=== PATIENT | male | born 1980 | race Caucasian/White ===

== ENCOUNTER 2017-11-10 11:14 | Inpatient (IN) | payer OTHER ==
[~2017-11-10] VITALS: Ht 172.7 cm; Wt 76.0 kg
[2017-11-10 11:15] VITALS: BP 169/106; PULSE 91; RESP 16; TEMP 97.7; O2SAT 100
--- NOTE | 2017-11-10 11:33 | PD ---
HPI Chief Complaint: GI Complaint Time Seen by Provider: 11:31 Travel History International Travel<30 days: No Contact w/Intl Traveler<30days: No Traveled to known affect area: No History of Present Illness HPI 37-year-old male presents the emergency department with 3 day history of worsening perirectal pain, and swelling, with pain with defecation. Patient states he has had chills and felt feverish, but no nausea or vomiting or diarrhea. Patient has pain radiating into the left testicle and hip. Patient thought it was a hemorrhoid but symptoms progressed and feeling feverish developed over the last 24 hours. Patient was evaluated at local urgent care and felt to have a perirectal abscess and was sent here for further evaluation and treatment. Patient has no previous history of this in the past. Patient states he is allergic to hydrocodone. [facility] Social History Alcohol Use: Yes Tobacco Use: No Substance Use: No Allergies-Medications (Allergen,Severity, Reaction): Coded Allergies: hydrocodone (Verified Allergy, Intermediate, Nausea/Vomiting, 11/10/17) Reported Meds & Prescriptions Reported Meds & Active Scripts Active Reported Lisinopril 5 Mg Tab 5 Mg PO DAILY Review of Systems Except as stated in HPI: all other systems reviewed are Neg General / Constitutional: Positive: Fever, Chills (subjective) Eyes: No: Visual changes HENT: No: Headaches Cardiovascular: No: Chest Pain or Discomfort Respiratory: No: Shortness of Breath Gastrointestinal: Positive: Loss of Appetite, Other (perirectal pain and swelling), No: Nausea, Vomiting, Diarrhea, Abdominal Pain Genitourinary: Positive: Other (pain into the left perineum and scrotum.), No: Urgency, Frequency, Dysuria Musculoskeletal: No: Pain Skin: No Rash Neurologic: No: Weakness Psychiatric: No: Depression Endocrine: No: Polydipsia Hematologic/Lymphatic: No: Easy Bruising Physical Exam Narrative GENERAL: Patient appears ill but not septic. SKIN: Warm and dry. Normal color. Normal turgor. Patient has indurated swollen erythematous region to the left aspect of the rectum without signs of hemorrhoid. There is no fissure. There is no signs of pointing. This seems consistent with perirectal abscess. Erythema measures approximately 3 cm x 3 cm in a crescent shape. HEAD: Atraumatic. Normocephalic. EYES: Pupils equal and round. No scleral icterus. No injection or drainage. ENT: No nasal bleeding or discharge. Mucous membranes pink and moist. Pharynx is clear. Airway is patent. NECK: Trachea midline. Supple and nontender. CARDIOVASCULAR: Regular rate and rhythm. RESPIRATORY: No accessory muscle use. Clear to auscultation. Breath sounds equal bilaterally. GASTROINTESTINAL: Abdomen soft, non-tender, nondistended. Hepatic and splenic margins not palpable. Patient is tenderness along the perineum without obvious signs of extension into the scrotum. MUSCULOSKELETAL: Extremities without clubbing, cyanosis, or edema. No obvious deformities. NEUROLOGICAL: Awake and alert. No obvious cranial nerve deficits. Motor grossly within normal limits. Five out of 5 muscle strength in the arms and legs. Normal speech. PSYCHIATRIC: Appropriate mood and affect; insight and judgment normal. Data Data Last Documented VS Vital Signs Date Time Temp Pulse Resp B/P (MAP) Pulse Ox O2 Delivery O2 Flow Rate FiO2 11/10/17 12:06 (127) 11/10/17 11:15 97.7 91 16 100 Orders Orders Complete Blood Count With Diff (11/10/17 11:42) Comprehensive Metabolic Panel (11/10/17 11:42) Lactic Acid (11/10/17 11:42) Prothrombin Time / Inr (Pt) (11/10/17 11:42) Act Partial Throm Time (Ptt) (11/10/17 11:42) Urinalysis - C+S If Indicated (11/10/17 11:42) Ct Abd/Pel W Iv Contrast(Rout) (11/10/17 11:42) Iv Access Insert/Monitor (11/10/17 11:42) Ecg Monitoring (11/10/17 11:42) Oximetry (11/10/17 11:42) NPO (11/10/17 11:42) Morphine Inj (Morphine Inj) (11/10/17 11:45) Ondansetron Inj (Zofran Inj) (11/10/17 11:45) Metronidazole 500 Mg Inj (Flagyl 500 Mg (11/10/17 11:45) Sodium Chlor 0.9% 1000 Ml Inj (Ns 1000 M (11/10/17 11:42) Levofloxacin 500 Mg Premix Inj (Levaquin (11/10/17 11:45) Sodium Chloride 0.9% Flush (Ns Flush) (11/10/17 11:45) Electrocardiogram (11/10/17 11:42) Iohexol 350 Inj (Omnipaque 350 Inj) (11/10/17 13:31) Hydromorphone Pf Inj (Dilaudid Pf Inj) (11/10/17 14:30) Admit Order (Ed Use Only) (11/10/17 14:45) Consult General Surgery (11/10/17 ) Labs Laboratory Tests Test 11/10/17 12:00 11/10/17 12:05 White Blood Count 9.2 TH/MM3 Red Blood Count 4.90 MIL/MM3 Hemoglobin 15.6 GM/DL Hematocrit 45.7 % Mean Corpuscular Volume 93.3 FL Mean Corpuscular Hemoglobin 31.9 PG Mean Corpuscular Hemoglobin Concent 34.1 % Red Cell Distribution Width 12.9 % Platelet Count 262 TH/MM3 Mean Platelet Volume 8.0 FL Neutrophils (%) (Auto) 73.7 % Lymphocytes (%) (Auto) 8.4 % Monocytes (%) (Auto) 16.9 % Eosinophils (%) (Auto) 0.7 % Basophils (%) (Auto) 0.3 % Neutrophils # (Auto) 6.8 TH/MM3 Lymphocytes # (Auto) 0.8 TH/MM3 Monocytes # (Auto) 1.6 TH/MM3 Eosinophils # (Auto) 0.1 TH/MM3 Basophils # (Auto) 0.0 TH/MM3 CBC Comment DIFF FINAL Differential Comment Prothrombin Time 10.2 SEC Prothromb Time International Ratio 1.0 RATIO Activated Partial Thromboplast Time 27.5 SEC Blood Urea Nitrogen 8 MG/DL Creatinine 0.88 MG/DL Random Glucose 99 MG/DL Total Protein 8.2 GM/DL Albumin 3.8 GM/DL Calcium Level 9.5 MG/DL Alkaline Phosphatase 109 U/L Aspartate Amino Transf (AST/SGOT) 21 U/L Alanine Aminotransferase (ALT/SGPT) 37 U/L Total Bilirubin 0.4 MG/DL Sodium Level 135 MEQ/L Potassium Level 4.2 MEQ/L Chloride Level 103 MEQ/L Carbon Dioxide Level 27.6 MEQ/L Anion Gap 4 MEQ/L Estimat Glomerular Filtration Rate 97 ML/MIN Lactic Acid Level 1.2 mmol/L MDM Medical Decision Making Medical Screen Exam Complete: Yes Emergency Medical Condition: Yes Differential Diagnosis Cellulitis. Abscess. Perirectal abscess. Narrative Course Patient appears medically stable at time of exam. Labs ordered including CBC, CMP, urinalysis. Lactic acid. Patient is made nothing by mouth an IV access is obtained. Patient is given Zofran 4 mg IV as well as 4 mg morphine IV. Patient is given 500 mg Levaquin IV as well as metronidazole 500 mg IV. EKG and chest x-ray is ordered. CT of the abdomen with IV contrast was ordered to rule out perirectal abscess. Labs showed no significant CBC, CMP is unremarkable. Lactic acid is 1.1. CT however shows: A mature fluid collection is identified posterior to the anus. It measures 2.5 x 2.6 x 3.4 cm in size. The stomach, small bowel, and colon demonstrate no acute abnormality. There is no free intraperitoneal air or fluid. Call was placed to Dr. Werner, the general surgeon on-call as we have no colorectal service, as discussed. Patient discussed with Dr. Werner who states he would recommend the patient be transferred for there is colorectal surgery on-call. Patient was discussed, and recommended to Dr. Monroy for surgical consult. Dr. Monroy said that he could take the patient into the surgery tomorrow morning. Call was placed to the residents, for admission and surgery tomorrow morning with Dr. Monroy. Diagnosis Primary Impression: Abscess, perirectal Admitting Information Admitting Physician Requests: Observation Condition: Stable Julian Edmonds Nov 10, 2017 11:32
[2017-11-10] MEDS ORDERED: LISI-519 PO (11:36)
[2017-11-10] MEDS ORDERED: SODIUM CHLOR 0.9% 1000 ML INJ 1,000 ML IV SCH (11:42)
[2017-11-10] MEDS ORDERED: SODIUM CHLORIDE 0.9% FLUSH 10 ML FLUSH IV FLUSH PRN ×2 (11:45→17:00)
[2017-11-10] MEDS ORDERED: ONDANSETRON HCL 4 MG/2 ML VIAL IVP ONE (11:45)
[2017-11-10] MEDS ORDERED: MORPHINE SULFATE 4 MG/ML INJ IV PUSH ONE (11:45)
[2017-11-10] MEDS ORDERED: LEVOFLOXACIN 500 MG PREMIX INJ 100 ML IV ONE (11:45)
[2017-11-10] MEDS ORDERED: metroNIDAZOLE 500 MG INJ 100 ML IV ONE (11:45)
[2017-11-10 12:38] LABS: AUTOMATED NEUTROPHIL # 6.8 TH/MM3 (1.8-7.7); BASOPHIL % 0.3 % (0.0-2.0); EOSINOPHIL # 0.1 TH/MM3 (0-0.4); EOSINOPHIL % 0.7 % (0.0-4.0); HEMATOCRIT 45.7 % (39.0-51.0); HEMO FLAGS DIFF FINAL; LYMPH % 8.4 % (9.0-44.0); LYMPHOCYTE # 0.8 TH/MM3 (1.0-4.8); MEAN CELL VOLUME 93.3 FL (80.0-100.0); MEAN CORPUSCULAR HEMOGLOBIN 31.9 PG (27.0-34.0); MEAN CORPUSCULAR HGB CONC 34.1 % (32.0-36.0); MONO % 16.9 % (0.0-8.0); NEUT % 73.7 % (16.0-70.0); PLATELET COUNT 262 TH/MM3 (150-450); RED CELL DISTRIBUTION WIDTH 12.9 % (11.6-17.2); WHITE BLOOD COUNT 9.2 TH/MM3 (4.0-11.0)
[2017-11-10 12:45] LABS: APTT (PATIENT) 27.5 SEC (24.3-30.1); PROTHROMBIN TIME - PATIENT 10.2 SEC (9.8-11.6)
[2017-11-10 13:04] LABS: ALT (GPT) 37 U/L (12-78); ANION GAP 4 MEQ/L (5-15); AST (GOT) 21 U/L (15-37); BICARBONATE 27.6 MEQ/L (21.0-32.0); BLOOD UREA NITROGEN 8 MG/DL (7-18); CHLORIDE 103 MEQ/L (98-107); GLOMERULAR FILTRATION RATE 97 ML/MIN (>89); POTASSIUM 4.2 MEQ/L (3.5-5.1); SODIUM (NA) 135 MEQ/L (136-145)
[2017-11-10 13:07] LABS: ALKALINE PHOSPHATASE 109 U/L (45-117); TOTAL BILIRUBIN ADULT 0.4 MG/DL (0.2-1.0)
[2017-11-10] MEDS ORDERED: IOHEXOL 350 MG/ML 10 ML VIAL (for RAD DIAG) IVCONTRAST ONE (13:31)
--- NOTE | 2017-11-10 13:38 | RADRPT ---
EXAM DATE/TIME: 11/10/2017 12:57 [place] COMPARISON: No previous studies available for comparison. INDICATIONS : Evaluate for perirectal abscess. IV CONTRAST: 96 cc Omnipaque 350 (iohexol) IV ORAL CONTRAST: No oral contrast ingested. RADIATION DOSE: 6.64 CTDIvol (mGy) MEDICAL HISTORY : Hypertension. SURGICAL HISTORY : None. ENCOUNTER: Initial ACUITY: 1 day PAIN SCALE: 5/10 LOCATION: abdomen TECHNIQUE: Volumetric scanning of the abdomen and pelvis was performed. Using automated exposure control and ad justment of the mA and/or kV according to patient size, radiation dose was kept as low as reasonably achievable to obtain optimal diagnostic quality images. DICOM format image data is available electro nically for review and comparison. FINDINGS: LOWER LUNGS: The visualized lower lungs are clear. LIVER: Liver is diffusely hypointense. There is no evidence of bile duct dilatation or space-occupying lesio ns. There are no calcified gallstones. SPLEEN: Normal size without lesion. PANCREAS: Within normal limits. KIDNEYS: Normal in size and shape. There is no mass, stone or hydronephrosis. ADRENAL GLANDS: Within normal limits. VASCULAR: There is no aortic aneurysm. BOWEL/MESENTERY: A mature fluid collection is identified posterior to the anus. It measures 2.5 x 2.6 x 3.4 cm in size . The stomach, small bowel, and colon demonstrate no acute abnormality. There is no free intraperito colin air or fluid. ABDOMINAL WALL: Within normal limits. RETROPERITONEUM: There is no lymphadenopathy. BLADDER: No wall thickening or mass. REPRODUCTIVE: Within normal limits. INGUINAL: There is no lymphadenopathy or hernia. MUSCULOSKELETAL: Within normal limits for patient age. CONCLUSION: 1. Perianal fluid collection characteristic of suspected abscess. 2. Hepatic steatosis. 3. No other significant abnormality. Yrn Jiménez MD on November 10, 2017 at 13:32 Board Certified Radiologist. This report was verified electronically.
[2017-11-10] MEDS ORDERED: HYDROmorphone HCL PF 2 MG/ML VIAL IV PUSH ONE (14:30)
--- NOTE | 2017-11-10 14:49 | HHI.HP ---
HPI Service Family Medicine Primary Care Physician No Primary Care Physician Admission Diagnosis Perirectal abscess Diagnoses: International Travel<30 Days: No Contact w/Intl Traveler<30days: No Known Affected Area: No History of Present Illness ED NOTE: 37-year-old male presents the emergency department with 3 day history of worsening perirectal pain, and swelling, with pain with defecation. Patient states he has had chills and felt feverish, but no nausea or vomiting or diarrhea. Patient has pain radiating into the left testicle and hip. Patient thought it was a hemorrhoid but symptoms progressed and feeling feverish developed over the last 24 hours. Patient was evaluated at local urgent care and felt to have a perirectal abscess and was sent here for further evaluation and treatment. Patient has no previous history of this in the past. Patient states he is allergic to hydrocodone. Past Family Social History Reported Medications Reported Meds & Active Scripts Active Reported Lisinopril 5 Mg Tab 5 Mg PO DAILY Allergies: Coded Allergies: hydrocodone (Verified Allergy, Intermediate, Nausea/Vomiting, 11/10/17) Physical Exam Vital Signs Vital Signs Date Time Temp Pulse Resp B/P (MAP) Pulse Ox O2 Delivery O2 Flow Rate FiO2 11/10/17 12:06 (127) 11/10/17 11:15 97.7 91 16 169/106 (127) 100 Physical Exam GENERAL: This is a well-nourished, well-developed patient, in no apparent distress. SKIN: No rashes, ecchymoses or lesions. Cool and dry. HEAD: Atraumatic. Normocephalic. No temporal or scalp tenderness. EYES: Pupils equal round and reactive. Extraocular motions intact. No scleral icterus. No injection or drainage. ENT: Nose without bleeding, purulent drainage or septal hematoma. Throat without erythema, tonsillar hypertrophy or exudate. Uvula midline. Airway patent. NECK: Trachea midline. No JVD or lymphadenopathy. Supple, nontender, no meningeal signs. CARDIOVASCULAR: Regular rate and rhythm without murmurs, gallops, or rubs. RESPIRATORY: Clear to auscultation. Breath sounds equal bilaterally. No wheezes , rales, or rhonchi. GASTROINTESTINAL: Abdomen soft, non-tender, nondistended. No hepato-splenomegaly , or palpable masses. No guarding. MUSCULOSKELETAL: Extremities without clubbing, cyanosis, or edema. No joint tenderness, effusion, or edema noted. No calf tenderness. Negative Homans sign bilaterally. NEUROLOGICAL: Awake and alert. Cranial nerves II through XII intact. Motor and sensory grossly within normal limits. Five out of 5 muscle strength in all muscle groups. Normal speech. Laboratory Laboratory Tests Test 11/10/17 12:00 11/10/17 12:05 White Blood Count 9.2 Red Blood Count 4.90 Hemoglobin 15.6 Hematocrit 45.7 Mean Corpuscular Volume 93.3 Mean Corpuscular Hemoglobin 31.9 Mean Corpuscular Hemoglobin Concent 34.1 Red Cell Distribution Width 12.9 Platelet Count 262 Mean Platelet Volume 8.0 Neutrophils (%) (Auto) 73.7 Lymphocytes (%) (Auto) 8.4 Monocytes (%) (Auto) 16.9 Eosinophils (%) (Auto) 0.7 Basophils (%) (Auto) 0.3 Neutrophils # (Auto) 6.8 Lymphocytes # (Auto) 0.8 Monocytes # (Auto) 1.6 Eosinophils # (Auto) 0.1 Basophils # (Auto) 0.0 CBC Comment DIFF FINAL Differential Comment Prothrombin Time 10.2 Prothromb Time International Ratio 1.0 Activated Partial Thromboplast Time 27.5 Blood Urea Nitrogen 8 Creatinine 0.88 Random Glucose 99 Total Protein 8.2 Albumin 3.8 Calcium Level 9.5 Alkaline Phosphatase 109 Aspartate Amino Transf (AST/SGOT) 21 Alanine Aminotransferase (ALT/SGPT) 37 Total Bilirubin 0.4 Sodium Level 135 Potassium Level 4.2 Chloride Level 103 Carbon Dioxide Level 27.6 Anion Gap 4 Estimat Glomerular Filtration Rate 97 Lactic Acid Level 1.2 Result Diagram: 11/10/17 1200 11/10/17 1200 Caprini VTE Risk Assessment Caprini Risk Assessment Model Point Value = 1 Point Value = 2 Point Value = 3 Point Value = 5 Age 41-60 Minor surgery BMI > 25 kg/m2 Swollen legs Varicose veins or History of unexplained or recurrent spontaneous Oral contraceptives or hormone replacement Sepsis (< 1 month) Serious lung disease, including pneumonia (< 1 month) Abnormal pulmonary function Acute myocardial infarction Congestive heart failure (< 1 month) History of inflammatory bowel disease Medical patient at bed rest Age 61-74 Arthroscopic surgery Major open surgery (> 45 min) Laparoscopic surgery (> 45 min) Malignancy Confined to bed (> 72 hours) Immobilizing plaster cast Central venous access Age >= 75 History of VTE Family history of VTE Factor V Leiden Prothrombin [id number] Lupus anticoagulant Anticardiolipin antibodies Elevated serum homocysteine Heparin-induced thrombocytopenia Other congenital or acquired thrombophilia Stroke (< 1 month) Elective arthroplasty Hip, pelvis, or leg fracture Acute spinal cord injury (< 1 month) Prophylaxis Regimen Total Risk Factor Score Risk Level Prophylaxis Regimen 0-1 Low Early ambulation 2 Moderate Order ONE of the following: *Sequential Compression Device (SCD) *Heparin 5000 units SQ BID 3-4 Higher Order ONE of the following medications: *Heparin 5000 units SQ TID *Enoxaparin/Lovenox 40 mg SQ daily (WT < 150 kg, CrCl > 30 mL/min) *Enoxaparin/Lovenox 30 mg SQ daily (WT < 150 kg, CrCl > 10-29 mL/min) *Enoxaparin/Lovenox 30 mg SQ BID (WT < 150 kg, CrCl > 30 mL/min) AND/OR *Sequential Compression Device (SCD) 5 or more Highest Order ONE of the following medications: *Heparin 5000 units SQ TID (Preferred with Epidurals) *Enoxaparin/Lovenox 40 mg SQ daily (WT < 150 kg, CrCl > 30 mL/min) *Enoxaparin/Lovenox 30 mg SQ daily (WT < 150 kg, CrCl > 10-29 mL/min) *Enoxaparin/Lovenox 30 mg SQ BID (WT < 150 kg, CrCl > 30 mL/min) AND *Sequential Compression Device (SCD) Assessment and Plan Problem List: (1) Abscess, perirectal ICD Codes: K61.1 - Rectal abscess Status: Acute Plan: CT shows: A mature fluid collection is identified posterior to the anus. It measures 2.5 x 2.6 x 3.4 cm in size. The stomach, small bowel, and colon demonstrate no acute abnormality. There is no free intraperitoneal air or fluid. Mandeep Lindsey MD, R3 Nov 10, 2017 14:49
--- NOTE | 2017-11-10 16:30 | HHI.HP ---
[facility] Service Family Medicine Primary Care Physician No Primary Care Physician Admission Diagnosis Perirectal abscess Diagnoses: (1) Abscess, perirectal International Travel<30 Days: No Contact w/Intl Traveler<30days: No Known Affected Area: No History of Present Illness 37-year-old male, otherwise healthy, presents with a three-day history of rectal pain. Patient has a history of hemorrhoids and believed it was related to this. 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 His pain has been worsening since Thursday. On Thursday his pain has been a 10 out of 10 since. It is worse with bowel movements and straining. Taking pressure off of his rectum alleviates the pain somewhat. He denies fevers or chills. He has broken out in sweats from time to time. He has some nausea, no vomiting. Denies diarrhea or constipation. His appetite remains good. He went to the urgent care earlier this morning and was sent to [place] for evaluation. All other systems reviewed and is within normal limits. (Mandeep Lindsey MD, R3) Review of Systems Constitutional: DENIES: Fever, Chills Endocrine: DENIES: Polydipsia, Polyuria Eyes: DENIES: Diplopia, Eye inflammation Ears, nose, mouth, throat: DENIES: Hearing loss, Vertigo Respiratory: DENIES: Cough, Snoring, Sputum production, Shortness of breath Cardiovascular: DENIES: Chest pain, Palpitations Gastrointestinal: DENIES: Abdominal pain, Black stools, Bloody stools, Constipation, Diarrhea Neurologic: DENIES: Abnormal gait, Headache Psychiatric: DENIES: Anxiety, Confusion (Mandeep Lindsey MD, R3) Past Family Social History Past Surgical History None Reported Medications Reported Meds & Active Scripts Active Reported Lisinopril 5 Mg Tab 5 Mg PO DAILY (Mandeep Lindsey MD, R3) Allergies: Coded Allergies: hydrocodone (Verified Allergy, Intermediate, Nausea/Vomiting, 11/10/17) Family History Mom: healthy Dad: htn Social History Tobacco: (Mandeep Lindsey MD, R3) Physical Exam Vital Signs Vital Signs Date Time Temp Pulse Resp B/P (MAP) Pulse Ox O2 Delivery O2 Flow Rate FiO2 11/10/17 12:06 (127) 11/10/17 11:15 97.7 91 16 169/106 (127) 100 Physical Exam GENERAL: This is a well-nourished, well-developed patient, in no apparent distress. SKIN: No rashes, ecchymoses or lesions. Cool and dry. HEAD: Atraumatic. Normocephalic. No temporal or scalp tenderness. EYES: Pupils equal round and reactive. Extraocular motions intact. No scleral icterus. No injection or drainage. ENT: Nose without bleeding, purulent drainage or septal hematoma. Throat without erythema, tonsillar hypertrophy or exudate. Uvula midline. Airway patent. NECK: Trachea midline. No JVD or lymphadenopathy. Supple, nontender, no meningeal signs. CARDIOVASCULAR: Regular rate and rhythm without murmurs, gallops, or rubs. RESPIRATORY: Clear to auscultation. Breath sounds equal bilaterally. No wheezes , rales, or rhonchi. GASTROINTESTINAL: Abdomen soft, non-tender, nondistended. No hepato-splenomegaly , or palpable masses. No guarding. Rectum: no surrounding cellulitis. indurated, TTP, area at 9 oclock measuring about 3x3 cm. MUSCULOSKELETAL: Extremities without clubbing, cyanosis, or edema. No joint tenderness, effusion, or edema noted. No calf tenderness. Negative Homans sign bilaterally. NEUROLOGICAL: Awake and alert. Cranial nerves II through XII intact. Motor and sensory grossly within normal limits. Five out of 5 muscle strength in all muscle groups. Normal speech. Laboratory Laboratory Tests Test 11/10/17 12:00 11/10/17 12:05 White Blood Count 9.2 Red Blood Count 4.90 Hemoglobin 15.6 Hematocrit 45.7 Mean Corpuscular Volume 93.3 Mean Corpuscular Hemoglobin 31.9 Mean Corpuscular Hemoglobin Concent 34.1 Red Cell Distribution Width 12.9 Platelet Count 262 Mean Platelet Volume 8.0 Neutrophils (%) (Auto) 73.7 Lymphocytes (%) (Auto) 8.4 Monocytes (%) (Auto) 16.9 Eosinophils (%) (Auto) 0.7 Basophils (%) (Auto) 0.3 Neutrophils # (Auto) 6.8 Lymphocytes # (Auto) 0.8 Monocytes # (Auto) 1.6 Eosinophils # (Auto) 0.1 Basophils # (Auto) 0.0 CBC Comment DIFF FINAL Differential Comment Prothrombin Time 10.2 Prothromb Time International Ratio 1.0 Activated Partial Thromboplast Time 27.5 Blood Urea Nitrogen 8 Creatinine 0.88 Random Glucose 99 Total Protein 8.2 Albumin 3.8 Calcium Level 9.5 Alkaline Phosphatase 109 Aspartate Amino Transf (AST/SGOT) 21 Alanine Aminotransferase (ALT/SGPT) 37 Total Bilirubin 0.4 Sodium Level 135 Potassium Level 4.2 Chloride Level 103 Carbon Dioxide Level 27.6 Anion Gap 4 Estimat Glomerular Filtration Rate 97 Lactic Acid Level 1.2 (Mandeep Lindsey MD, R3) Result Diagram: 11/10/17 1200 11/10/17 1200 Imaging Last Impressions Abdomen/Pelvis CT 11/10/17 1142 Signed Impressions: Service Date/Time: Friday, November 10, 2017 12:57 - CONCLUSION: 1. Perianal fluid collection characteristic of suspected abscess. 2. Hepatic steatosis. 3. No other significant abnormality. Yrn Jiménez MD (Mandeep Lindsey MD, R3) Caprini VTE Risk Assessment Caprini VTE Risk Assessment: No/Low Risk (score <= 1) Caprini Risk Assessment Model Point Value = 1 Point Value = 2 Point Value = 3 Point Value = 5 Age 41-60 Minor surgery BMI > 25 kg/m2 Swollen legs Varicose veins or History of unexplained or recurrent spontaneous Oral contraceptives or hormone replacement Sepsis (< 1 month) Serious lung disease, including pneumonia (< 1 month) Abnormal pulmonary function Acute myocardial infarction Congestive heart failure (< 1 month) History of inflammatory bowel disease Medical patient at bed rest Age 61-74 Arthroscopic surgery Major open surgery (> 45 min) Laparoscopic surgery (> 45 min) Malignancy Confined to bed (> 72 hours) Immobilizing plaster cast Central venous access Age >= 75 History of VTE Family history of VTE Factor V Leiden Prothrombin [id number] Lupus anticoagulant Anticardiolipin antibodies Elevated serum homocysteine Heparin-induced thrombocytopenia Other congenital or acquired thrombophilia Stroke (< 1 month) Elective arthroplasty Hip, pelvis, or leg fracture Acute spinal cord injury (< 1 month) Prophylaxis Regimen Total Risk Factor Score Risk Level Prophylaxis Regimen 0-1 Low Early ambulation 2 Moderate Order ONE of the following: *Sequential Compression Device (SCD) *Heparin 5000 units SQ BID 3-4 Higher Order ONE of the following medications: *Heparin 5000 units SQ TID *Enoxaparin/Lovenox 40 mg SQ daily (WT < 150 kg, CrCl > 30 mL/min) *Enoxaparin/Lovenox 30 mg SQ daily (WT < 150 kg, CrCl > 10-29 mL/min) *Enoxaparin/Lovenox 30 mg SQ BID (WT < 150 kg, CrCl > 30 mL/min) AND/OR *Sequential Compression Device (SCD) 5 or more Highest Order ONE of the following medications: *Heparin 5000 units SQ TID (Preferred with Epidurals) *Enoxaparin/Lovenox 40 mg SQ daily (WT < 150 kg, CrCl > 30 mL/min) *Enoxaparin/Lovenox 30 mg SQ daily (WT < 150 kg, CrCl > 10-29 mL/min) *Enoxaparin/Lovenox 30 mg SQ BID (WT < 150 kg, CrCl > 30 mL/min) AND *Sequential Compression Device (SCD) (Mandeep Lindsey MD, R3) Assessment and Plan Assessment and Plan 37-year-old male presents with perirectal abscess on CT scan. Surgery consulted , Dr. Smith. Will take to the operating room tomorrow. Code Status full (Mandeep Lindsey MD, R3) Attending Attestation THIS CASE WAS DISCUSSED WITH THE RESIDENT PHYSICIANS. I HAVE REVIEWED THE RECORD AND AGREE WITH THE ABOVE NOTE AND PLAN OF CARE WAS DISCUSSED. I HAVE AUTHORIZED THE ORDER FOR ADMISSION TO AN IN-PATIENT STATUS. (Kodi Chatman MD) Problem List: (1) Abscess, perirectal ICD Codes: K61.1 - Rectal abscess Status: Acute Plan: CT shows: A mature fluid collection is identified posterior to the anus. It measures 2.5 x 2.6 x 3.4 cm in size. The stomach, small bowel, and colon demonstrate no acute abnormality. There is no free intraperitoneal air or fluid. Dr. Smith Consulted NPO after midnight for anticipated I&D Given metronidazole and levaquin in ER; no signs of cellulitis currently. Will defer abx at this time. Morphine for pain. Toradol for breakthrough (2) HTN (hypertension) ICD Codes: I10 - Essential (primary) hypertension Plan: continue home lisinopril (3) FEN/PPX Status: Acute Plan: Fluids: normal saline at maintenance while NPO after midnight Electrolytes: monitor and replace prn Nutrition: regular diet, NPO after MN PPX: SCDs, holding chemical ppx pending surgery. (Mandeep Lindsey MD, R3) Problem Qualifiers (1) HTN (hypertension): Qualified Codes: I10 - Essential (primary) hypertension Mandeep Lindsey MD, R3 Nov 10, 2017 16:30 Kodi Chatman MD Nov 11, 2017 18:07
[2017-11-10 16:57] VITALS: BP 160/94; PULSE 91; RESP 18; O2SAT 97
[2017-11-10] MEDS ORDERED: TEMAZEPAM 15 MG CAP PO PRN (17:00)
[2017-11-10] MEDS ORDERED: LACTULOSE SYRUP 20 GM/30 ML CUP PO PRN (17:00)
[2017-11-10] MEDS ORDERED: BISACODYL 10 MG SUPP RECTAL PRN (17:00)
[2017-11-10] MEDS ORDERED: SENNOSIDES 8.6 MG TAB PO PRN (17:00)
[2017-11-10] MEDS ORDERED: ACETAMINOPHEN 325 MG TAB PO PRN (17:00)
[2017-11-10] MEDS ORDERED: ONDANSETRON HCL 4 MG/2 ML VIAL IVP PRN (17:00)
[2017-11-10] MEDS ORDERED: NALOXONE HCL 0.4 MG/ML AMP IV PUSH PRN (17:00)
[2017-11-10] MEDS ORDERED: MAGNESIUM HYDROXIDE SUSP 30 ML CUP PO PRN (17:00)
[2017-11-10 17:10] LABS: BLOOD, URINE NEG (NEG); GLUCOSE,URINE NEG (NEG); KETONE, URINE NEG (NEG); NITRITE,URINE NEG (NEG); PH, URINE 5.5 (5.0-8.5); URINE COLOR YELLOW (YELLW/STRAW)
[2017-11-10] MEDS ORDERED: KETOROLAC TROMETHAMINE 30 MG/ML (IVP) VIAL IV PUSH PRN (17:15)
[2017-11-10 17:17] LABS: COMMENT (UR) CULT NOT INDICATED; CULTURE IF INDICATED CULT NOT INDICATED
[2017-11-10 18:21] VITALS: BP 155/90; PULSE 94; RESP 18; TEMP 99.6; O2SAT 99
[2017-11-10] MEDS: MORPHINE SULFATE 4 MG/ML INJ IV PUSH PRN ×2 (19:01→23:38)
--- NOTE | 2017-11-10 19:34 | EKG ---
Date Performed: 11/10/2017 Time Performed: 12:11:26 PTAGE: 37 years EKG: Sinus rhythm NORMAL ECG NO PREVIOUS TRACING DOCTOR: Chon Bess Interpretating Date/Time 11/10/2017 19:33:51
[2017-11-10 20:04] VITALS: BP 146/87; PULSE 104; RESP 16; TEMP 99.7; O2SAT 97
[2017-11-10] MEDS: DOCUSATE SODIUM 50 MG/SENNA 8.6 MG TAB PO SCH (21:00)
--- NOTE | 2017-11-10 21:30 | PD.CAR.PN ---
CVT Progress Note Subjective/Hospital Course: Referral received Full consult to follow For I&D of the perirectal abscess in a.m. Thanks J Objective: Vital Signs Date Time Temp Pulse Resp B/P (MAP) Pulse Ox O2 Delivery O2 Flow Rate FiO2 11/10/17 20:04 99.7 104 16 146/87 (106) 97 11/10/17 18:21 99.6 94 18 155/90 (111) 99 11/10/17 18:17 (116) 11/10/17 16:57 91 18 160/94 (116) 97 Room Air 11/10/17 12:06 (127) 11/10/17 11:15 97.7 91 16 169/106 (127) 100 Labs: Laboratory Tests Test 11/10/17 12:00 11/10/17 12:05 11/10/17 16:55 White Blood Count 9.2 TH/MM3 (4.0-11.0) Red Blood Count 4.90 MIL/MM3 (4.50-5.90) Hemoglobin 15.6 GM/DL (13.0-17.0) Hematocrit 45.7 % (39.0-51.0) Mean Corpuscular Volume 93.3 FL (80.0-100.0) Mean Corpuscular Hemoglobin 31.9 PG (27.0-34.0) Mean Corpuscular Hemoglobin Concent 34.1 % (32.0-36.0) Red Cell Distribution Width 12.9 % (11.6-17.2) Platelet Count 262 TH/MM3 (150-450) Mean Platelet Volume 8.0 FL (7.0-11.0) Neutrophils (%) (Auto) 73.7 % (16.0-70.0) Lymphocytes (%) (Auto) 8.4 % (9.0-44.0) Monocytes (%) (Auto) 16.9 % (0.0-8.0) Eosinophils (%) (Auto) 0.7 % (0.0-4.0) Basophils (%) (Auto) 0.3 % (0.0-2.0) Neutrophils # (Auto) 6.8 TH/MM3 (1.8-7.7) Lymphocytes # (Auto) 0.8 TH/MM3 (1.0-4.8) Monocytes # (Auto) 1.6 TH/MM3 (0-0.9) Eosinophils # (Auto) 0.1 TH/MM3 (0-0.4) Basophils # (Auto) 0.0 TH/MM3 (0-0.2) CBC Comment DIFF FINAL Differential Comment Prothrombin Time 10.2 SEC (9.8-11.6) Prothromb Time International Ratio 1.0 RATIO Activated Partial Thromboplast Time 27.5 SEC (24.3-30.1) Blood Urea Nitrogen 8 MG/DL (7-18) Creatinine 0.88 MG/DL (0.60-1.30) Random Glucose 99 MG/DL (74-106) Total Protein 8.2 GM/DL (6.4-8.2) Albumin 3.8 GM/DL (3.4-5.0) Calcium Level 9.5 MG/DL (8.5-10.1) Alkaline Phosphatase 109 U/L (45-117) Aspartate Amino Transf (AST/SGOT) 21 U/L (15-37) Alanine Aminotransferase (ALT/SGPT) 37 U/L (12-78) Total Bilirubin 0.4 MG/DL (0.2-1.0) Sodium Level 135 MEQ/L (136-145) Potassium Level 4.2 MEQ/L (3.5-5.1) Chloride Level 103 MEQ/L (98-107) Carbon Dioxide Level 27.6 MEQ/L (21.0-32.0) Anion Gap 4 MEQ/L (5-15) Estimat Glomerular Filtration Rate 97 ML/MIN (>89) Lactic Acid Level 1.2 mmol/L (0.4-2.0) Urine Color YELLOW (YELLW/STRAW) Urine Turbidity CLEAR (CLEAR) Urine pH 5.5 (5.0-8.5) Urine Specific Bath 1.043 (1.002-1.035) Urine Protein NEG mg/dL (NEG-TRACE) Urine Glucose (UA) NEG mg/dL (NEG) Urine Ketones NEG mg/dL (NEG) Urine Occult Blood NEG (NEG) Urine Nitrite NEG (NEG) Urine Bilirubin NEG (NEG) Urine Urobilinogen LESS THAN 2.0 MG/DL (LESS Urine Leukocyte Esterase NEG (NEG) Urine RBC 1 /hpf (0-3) Urine WBC 1 /hpf (0-5) Microscopic Urinalysis Comment CULT NOT INDICATED Result Diagram: 11/10/17 1200 11/10/17 1200 Estefanía Alarcon MD Nov 10, 2017 21:30
[2017-11-10 23:26] VITALS: BP 129/77; PULSE 94; RESP 18; TEMP 98.9; O2SAT 96
[2017-11-10] MEDS: SODIUM CHLOR 0.9% 1000 ML INJ 1,000 ML IV SCH (23:37)
[2017-11-10] MEDS: SODIUM CHLORIDE 0.9% FLUSH 10 ML FLUSH IV FLUSH SCH (23:37)
[2017-11-11] MEDS ORDERED: POVIDONE IODINE 5% (ANTISEPSIS KIT) 4 APPLICATIONS EACH NARE PRN (00:30)
[2017-11-11] MEDS ORDERED: SODIUM CHLORID 0.9% 500 ML IV PRN (00:30)
[2017-11-11] MEDS ORDERED: LACTATED RINGER'S 1000 ML IV PRN (00:30)
[2017-11-11] MEDS ORDERED: CHLORHEXIDINE GLUCONATE 2 % 1 PACK (2 CLOTHS) TOPICAL PRN (00:30)
[2017-11-11] MEDS ORDERED: METOPROLOL TARTRATE 25 MG TAB PO PRN (00:30)
[2017-11-11 03:51] VITALS: BP 132/79; PULSE 91; RESP 18; TEMP 98.4; O2SAT 97
[2017-11-11] MEDS: MORPHINE SULFATE 4 MG/ML INJ IV PUSH PRN ×4 (05:40→21:04)
[2017-11-11 06:47] LABS: AUTOMATED NEUTROPHIL # 8.7 TH/MM3 (1.8-7.7); BASOPHIL % 0.2 % (0.0-2.0); EOSINOPHIL % 0.4 % (0.0-4.0); HEMATOCRIT 40.3 % (39.0-51.0); HEMO FLAGS DIFF FINAL; LYMPH % 7.5 % (9.0-44.0); LYMPHOCYTE # 0.9 TH/MM3 (1.0-4.8); MEAN CELL VOLUME 93.4 FL (80.0-100.0); MEAN CORPUSCULAR HEMOGLOBIN 31.9 PG (27.0-34.0); MEAN CORPUSCULAR HGB CONC 34.1 % (32.0-36.0); MONO % 16.2 % (0.0-8.0); NEUT % 75.7 % (16.0-70.0); PLATELET COUNT 242 TH/MM3 (150-450); RED BLOOD COUNT 4.31 MIL/MM3 (4.50-5.90); RED CELL DISTRIBUTION WIDTH 12.9 % (11.6-17.2); WHITE BLOOD COUNT 11.5 TH/MM3 (4.0-11.0)
[2017-11-11] MEDS: SODIUM CHLOR 0.9% 1000 ML INJ 1,000 ML IV SCH ×3 (07:08→21:09)
[2017-11-11 07:15] LABS: ALKALINE PHOSPHATASE 86 U/L (45-117); ALT (GPT) 24 U/L (12-78); ANION GAP 6 MEQ/L (5-15); AST (GOT) 14 U/L (15-37); BICARBONATE 28.6 MEQ/L (21.0-32.0); CHLORIDE 101 MEQ/L (98-107); GLOMERULAR FILTRATION RATE 107 ML/MIN (>89); SODIUM (NA) 136 MEQ/L (136-145); TOTAL BILIRUBIN ADULT 0.4 MG/DL (0.2-1.0)
[2017-11-11 07:32] LABS: BLOOD UREA NITROGEN 7 MG/DL (7-18)
[2017-11-11 07:38] VITALS: BP 132/80; PULSE 88; RESP 18; TEMP 97.5; O2SAT 96
[2017-11-11] MEDS: SODIUM CHLORIDE 0.9% FLUSH 10 ML FLUSH IV FLUSH SCH ×2 (09:00→21:08)
--- NOTE | 2017-11-11 09:39 | HHI.FPPN ---
Subjective Remarks FM Attending Note: Patient seen and examined. S: Chart and all resident physician notes reviewed. In summary this is a 37 year old male who was admitted with an admission diagnosis of Perirectal Abscess. This patient reports the onset of severe perirectal pain that started approximately 3-4 days ago. No preceding symptoms of rectal irritation, constipation or hemorrhoids had been noted. The pain progressively increased until he presented to the emergency room. On examination no visible hemorrhoids were noted. He did have a CT scan that suggested a possible perirectal abscess. Surgery has been consult and is planning to perform an I&D today. His medical history is otherwise unremarkable. Objective Vitals Vital Signs Date Time Temp Pulse Resp B/P (MAP) Pulse Ox O2 Delivery O2 Flow Rate FiO2 11/11/17 07:38 97.5 88 18 132/80 (97) 96 11/11/17 05:45 15 11/11/17 03:51 98.4 91 18 132/79 (96) 97 11/10/17 23:26 98.9 94 18 129/77 (94) 96 11/10/17 20:04 99.7 104 16 146/87 (106) 97 11/10/17 18:21 99.6 94 18 155/90 (111) 99 11/10/17 18:17 (116) 11/10/17 16:57 91 18 160/94 (116) 97 Room Air 11/10/17 12:06 (127) 11/10/17 11:15 97.7 91 16 169/106 (127) 100 I/O 11/10/17 11/10/17 11/10/17 11/11/17 11/11/17 11/11/17 07:00 15:00 23:00 07:00 15:00 23:00 Intake Total 1200 ml Output Total 800 ml Balance 1200 ml -800 ml Intake IV Total 1200 ml Output Urine Total 800 ml # Voids 1 1 Result Diagram: 11/11/17 0557 11/11/17 0557 Other Results Item Value Date Time Total Bilirubin 0.4 MG/DL 11/10/17 1200 Aspartate Amino Transf (AST/SGOT) 21 U/L 11/10/17 1200 Alanine Aminotransferase (ALT/SGPT) 37 U/L 11/10/17 1200 Alkaline Phosphatase 109 U/L 11/10/17 1200 Urine Specific Dixon 1.043 H 11/10/17 1655 Urine Occult Blood NEG 11/10/17 1655 Urine Nitrite NEG 11/10/17 1655 Urine Leukocyte Esterase NEG 11/10/17 1655 Imaging Last 48 hours Impressions Abdomen/Pelvis CT 11/10/17 1142 Signed Impressions: Service Date/Time: Friday, November 10, 2017 12:57 - CONCLUSION: 1. Perianal fluid collection characteristic of suspected abscess. 2. Hepatic steatosis. 3. No other significant abnormality. Yrn Jiménez MD Objective Remarks O. CONSTITUTIONAL/GEN: normally nourished, in NAD. LUNGS: clear A-P, respiratory effort is normal. CARDIOVASCULAR: RR without murmur or gallop. No significant edema. GI/ABD: soft without masses, without organomegaly. NEURO: No focal deficits. MUSC: back is normal in appearance. Extremities are normal in appearance. PSYCH/MENTAL STATUS: Alert and oriented x 3. A/P Assessment and Plan 37-year-old male presents with perirectal abscess on CT scan. Surgery consulted , Dr. Smith. Will take to the operating room tomorrow. Problem List: (1) Abscess, perirectal ICD Codes: K61.1 - Rectal abscess Status: Acute Plan: CT shows: A mature fluid collection is identified posterior to the anus. It measures 2.5 x 2.6 x 3.4 cm in size. The stomach, small bowel, and colon demonstrate no acute abnormality. There is no free intraperitoneal air or fluid. Dr. Smith Consulted NPO after midnight for anticipated I&D Given metronidazole and levaquin in ER; no signs of cellulitis currently. Will defer abx at this time. Morphine for pain. Toradol for breakthrough 11/11/17 Patient is to undergo surgical drainage of suspected. Rectal abscess later today. (2) HTN (hypertension) ICD Codes: I10 - Essential (primary) hypertension Plan: continue home lisinopril (3) FEN/PPX Status: Acute Plan: Fluids: normal saline at maintenance while NPO after midnight Electrolytes: monitor and replace prn Nutrition: regular diet, NPO after MN PPX: SCDs, holding chemical ppx pending surgery. Problem Qualifiers (1) HTN (hypertension): Qualified Codes: I10 - Essential (primary) hypertension Kodi Chatman MD Nov 11, 2017 09:39
[2017-11-11] MEDS: DOCUSATE SODIUM 50 MG/SENNA 8.6 MG TAB PO SCH ×2 (09:53→21:03)
[2017-11-11] MEDS: LISINOPRIL 5 MG TAB PO SCH (09:54)
[2017-11-11 11:55] VITALS: BP 119/75; PULSE 85; RESP 18; TEMP 98.5; O2SAT 95
[2017-11-11] MEDS ORDERED: SUGAMMADEX SODIUM 200 MG/2 ML VIAL IV PUSH ONE ×2 (13:29)
[2017-11-11] MEDS ORDERED: ACETAMINOPHEN 1000 MG/100 ML 100 ML IV ONE (13:29)
[2017-11-11] MEDS ORDERED: HYDROmorphone HCL PF 2 MG/ML VIAL ONE (14:16)
[2017-11-11] MEDS ORDERED: LEVOFLOXACIN 500 MG TAB PO SCH (16:00)
[2017-11-11] MEDS ORDERED: DO NOT ADM ANY ANTICOAGULANT DRUGS PRN (16:15)
[2017-11-11] MEDS: metroNIDAZOLE 500 MG TAB PO SCH ×2 (17:54→21:03)
[2017-11-11 18:00] VITALS: BP 116/73; PULSE 85; RESP 16; TEMP 96.6; O2SAT 96
[2017-11-11 19:28] VITALS: O2SAT 96
[2017-11-11 20:28] VITALS: BP 117/70; PULSE 80; RESP 18; TEMP 96.8; O2SAT 97
[2017-11-12] MEDS: MORPHINE SULFATE 4 MG/ML INJ IV PUSH PRN ×2 (00:13→08:16)
[2017-11-12 00:28] VITALS: BP 115/66; PULSE 90; RESP 20; TEMP 96.4; O2SAT 96
[2017-11-12] MEDS: SODIUM CHLOR 0.9% 1000 ML INJ 1,000 ML IV SCH ×2 (04:28→11:44)
[2017-11-12 04:54] VITALS: BP 120/78; PULSE 62; RESP 18; TEMP 97; O2SAT 98
[2017-11-12 08:00] VITALS: BP 119/75; PULSE 76; RESP 17; TEMP 96.6; O2SAT 98
--- NOTE | 2017-11-12 08:12 | MP ---
cc: ESTEFANÍA HDZ MD DATE OF SURGERY: 11/11/2017 PREOPERATIVE DIAGNOSIS Left perirectal abscess. POSTOPERATIVE DIAGNOSIS Left perirectal abscess. OPERATIVE PROCEDURE Drainage of left perirectal abscess. SURGEON Dr. Hdz. ANESTHESIA General. ESTIMATED BLOOD LOSS Minimal. PROCEDURE The patient was prepped and draped in the usual fashion and placed in stirrups. After being placed in stirrups area of the left perirectal space is indurated and swollen. It is injected with 1% Xylocaine. Incision was made in the radial fashion and away from the anus and about 20 ccs of purulent material readily escapes, brownish dark in color. Finger is used to break up septations and then the cavity is irrigated with copious amounts of saline. Rectal exam is not performed. There is no communication between the abscess and the rectal vault or anal canal, no venous fistula at least. This is packed with Iodoform packing, dressing applied. The patient tolerated the procedure well. Estefanía CAMPOVERDE/RIN /4:27 PM /7:57 AM
[2017-11-12 08:13] LABS: AUTOMATED NEUTROPHIL # 12.3 TH/MM3 (1.8-7.7); BASOPHIL % 0.1 % (0.0-2.0); HEMATOCRIT 40.7 % (39.0-51.0); HEMO FLAGS DIFF FINAL; LYMPH % 4.8 % (9.0-44.0); LYMPHOCYTE # 0.7 TH/MM3 (1.0-4.8); MEAN CELL VOLUME 94.3 FL (80.0-100.0); MEAN CORPUSCULAR HEMOGLOBIN 31.7 PG (27.0-34.0); MEAN CORPUSCULAR HGB CONC 33.6 % (32.0-36.0); MONO % 10.4 % (0.0-8.0); NEUT % 84.7 % (16.0-70.0); PLATELET COUNT 269 TH/MM3 (150-450); RED BLOOD COUNT 4.32 MIL/MM3 (4.50-5.90); RED CELL DISTRIBUTION WIDTH 12.6 % (11.6-17.2); WHITE BLOOD COUNT 14.6 TH/MM3 (4.0-11.0)
[2017-11-12] MEDS: SODIUM CHLORIDE 0.9% FLUSH 10 ML FLUSH IV FLUSH SCH (08:16)
[2017-11-12] MEDS: metroNIDAZOLE 500 MG TAB PO SCH (08:16)
[2017-11-12] MEDS: LISINOPRIL 5 MG TAB PO SCH (08:16)
[2017-11-12] MEDS: DOCUSATE SODIUM 50 MG/SENNA 8.6 MG TAB PO SCH (08:16)
[2017-11-12 08:46] LABS: BICARBONATE 25.9 MEQ/L (21.0-32.0); POTASSIUM 4.1 MEQ/L (3.5-5.1)
[2017-11-12 12:00] VITALS: BP 125/73; PULSE 74; RESP 17; TEMP 96.5; O2SAT 95
--- NOTE | 2017-11-12 13:21 | HHI.FPPN ---
Subjective Remarks Patient seen and examined this morning. No acute events overnight per nursing staff. Patient states that he was taken to the OR yesterday for I/D of perianal abscess. He states the procedure went well without complications. Prior to his surgery, he states that when urinating he felt a "pop" that was likely the abscess rupturing as he felt some relief. He is anxious and being discharged home today per his report from general surgery. He has no complaints and denies any fevers, chills, shortness breath, chest pain, NVD, ABD pain, or calf tenderness. (Mark Dominguez MD R2) Objective Vitals Vital Signs Date Time Temp Pulse Resp B/P (MAP) Pulse Ox O2 Delivery O2 Flow Rate FiO2 11/12/17 12:00 96.5 74 17 125/73 (90) 95 11/12/17 08:00 96.6 76 17 119/75 (90) 98 11/12/17 04:54 97.0 62 18 120/78 (92) 98 11/12/17 00:28 96.4 90 20 115/66 (82) 96 11/11/17 20:28 96.8 80 18 117/70 (86) 97 11/11/17 19:28 96 21 11/11/17 18:00 96.6 85 16 116/73 (87) 96 11/11/17 17:45 97.8 92 15 112/62 (79) 97 Room Air 11/11/17 17:20 15 11/11/17 17:00 89 15 113/73 (86) 97 Room Air 11/11/17 16:45 86 16 110/71 (84) 96 Room Air 11/11/17 16:30 79 16 106/68 (81) 94 Room Air 11/11/17 16:15 98 15 107/69 (82) 96 Room Air 11/11/17 16:00 88 15 108/69 (82) 95 Nasal Cannula 3 11/11/17 15:43 98.8 89 15 106/65 (79) 98 Nasal Cannula 3 I/O 11/11/17 11/11/17 11/11/17 11/12/17 11/12/17 11/12/17 07:00 15:00 23:00 07:00 15:00 23:00 Intake Total 740 ml 1560 ml Output Total 1210 ml Balance -470 ml 1560 ml Intake Oral 760 ml IV Total 240 ml 800 ml Other 500 ml Output Urine Total 1200 ml Estimated Blood Loss 10 ml # Voids 1 4 # Bowel Movements 0 (Mark Dominguez MD R2) Result Diagram: 11/12/1749 11/12/17748 Objective Remarks CONSTITUTIONAL/GEN: Well-developed, normally nourished male lying in bed in no acute distress. LUNGS: Clear to auscultation bilaterally with no CRW. No increased work of breathing. CARDIOVASCULAR: Regular in rhythm and no MGR appreciated. GI/ABD: Soft, nondistended with positive bowel sounds. No masses appreciated. URO/GEN: Rectum with sterile bandage with packing in place. No signs of hemorrhage or infection. NEURO: Afocal. AAO 3. Normal speech and judgment. MUSC: No cyanosis or edema appreciated. No calf tenderness. Ambulating well. PSYCH/MENTAL STATUS: Alert and oriented x 3. (Mark Dominguez MD R2) A/P Assessment and Plan 37-year-old male presents with perirectal abscess on CT scan s/p incision and drainage by surgery. Discharge Planning Pending surgery recommendations. (Mark Dominguez MD R2) Attending Attestation Patient seen and examined. Case reviewed and discussed with the resident team. Agree with plan of care as discussed with me and documented in the resident note. (Kodi Chatman MD) Problem List: (1) Abscess, perirectal ICD Codes: K61.1 - Rectal abscess Status: Acute Plan: CT shows: A mature fluid collection is identified posterior to the anus. It measures 2.5 x 2.6 x 3.4 cm in size. The stomach, small bowel, and colon demonstrate no acute abnormality. There is no free intraperitoneal air or fluid. -Incision and drainage of peritonsillar abscess performed by surgery on 11/11 without complications -Sterile bandage and packing in place, dressings to be changed by surgery today. -Patient reports surgery informed him of possible discharge today, pending recommendations. -Patient to be discharged home on Keflex 500 mg 4 times a day for 5 days (2) HTN (hypertension) ICD Codes: I10 - Essential (primary) hypertension Plan: -Continue home lisinopril (3) FEN/PPX Status: Acute Plan: Fluids: Tolerating oral fluids well. Electrolytes: monitor and replace prn Nutrition: regular diet as tolerated PPX: SCDs, defer to surgery on restarting heparin therapy (Mark Dominguez MD R2) Problem Qualifiers (1) HTN (hypertension): Qualified Codes: I10 - Essential (primary) hypertension Mark Dominguez MD R2 Nov 12, 2017 13:21 Kodi Chatman MD Nov 13, 2017 10:07
--- NOTE | 2017-11-12 13:25 | HHI.DCPOC ---
Discharge Care Plan Diagnosis: (1) Abscess, perirectal Goals to Promote Your Health * To prevent worsening of your condition and complications * To maintain your health at the optimal level Directions to Meet Your Goals Take your medications as prescribed Follow your dietary instruction Follow activity as directed Keep your appointments as scheduled Take your immunizations and boosters as scheduled If your symptoms worsen call your PCP, if no PCP go to Urgent Care Center or Emergency Room Smoking is Dangerous to Your Health. Avoid second hand smoke Call the 24-hour hour crisis hotline for domestic abuse at Mark Dominguez MD R2 Nov 12, 2017 13:25
[2017-11-12] MEDS ORDERED: CEPH-460 PO ×2 (13:30→15:10)
[2017-11-12] MEDS ORDERED: PERI PO (14:29)
[2017-11-12] MEDS ORDERED: TRAM50TA PO (14:29)
--- NOTE | 2017-11-12 15:38 | PD.CAR.PN ---
CVT Progress Note Subjective/Hospital Course: Referral received Full consult to follow For I&D of the perirectal abscess in a.kay Galdino Smith 11/12/17 Patient status post drainage of perirectal abscess Plan Remove packing Sitz baths in warm water 3 times a day and after bowel movements Shower daily No more repacking Patient can be discharged today can follow-up with me in about 3 weeks He can be discharged probably on Keflex or a combination of Keflex and Flagyl Cultures pending Objective: Vital Signs Date Time Temp Pulse Resp B/P (MAP) Pulse Ox O2 Delivery O2 Flow Rate FiO2 11/12/17 12:00 96.5 74 17 125/73 (90) 95 11/12/17 08:00 96.6 76 17 119/75 (90) 98 11/12/17 04:54 97.0 62 18 120/78 (92) 98 11/12/17 00:28 96.4 90 20 115/66 (82) 96 11/11/17 20:28 96.8 80 18 117/70 (86) 97 11/11/17 19:28 96 21 11/11/17 18:00 96.6 85 16 116/73 (87) 96 11/11/17 17:45 97.8 92 15 112/62 (79) 97 Room Air 11/11/17 17:20 15 11/11/17 17:00 89 15 113/73 (86) 97 Room Air 11/11/17 16:45 86 16 110/71 (84) 96 Room Air 11/11/17 16:30 79 16 106/68 (81) 94 Room Air 11/11/17 16:15 98 15 107/69 (82) 96 Room Air 11/11/17 16:00 88 15 108/69 (82) 95 Nasal Cannula 3 11/11/17 15:43 98.8 89 15 106/65 (79) 98 Nasal Cannula 3 Labs: Laboratory Tests Test 11/12/17 07:49 White Blood Count 14.6 TH/MM3 (4.0-11.0) Red Blood Count 4.32 MIL/MM3 (4.50-5.90) Hemoglobin 13.7 GM/DL (13.0-17.0) Hematocrit 40.7 % (39.0-51.0) Mean Corpuscular Volume 94.3 FL (80.0-100.0) Mean Corpuscular Hemoglobin 31.7 PG (27.0-34.0) Mean Corpuscular Hemoglobin Concent 33.6 % (32.0-36.0) Red Cell Distribution Width 12.6 % (11.6-17.2) Platelet Count 269 TH/MM3 (150-450) Mean Platelet Volume 7.4 FL (7.0-11.0) Neutrophils (%) (Auto) 84.7 % (16.0-70.0) Lymphocytes (%) (Auto) 4.8 % (9.0-44.0) Monocytes (%) (Auto) 10.4 % (0.0-8.0) Eosinophils (%) (Auto) 0.0 % (0.0-4.0) Basophils (%) (Auto) 0.1 % (0.0-2.0) Neutrophils # (Auto) 12.3 TH/MM3 (1.8-7.7) Lymphocytes # (Auto) 0.7 TH/MM3 (1.0-4.8) Monocytes # (Auto) 1.5 TH/MM3 (0-0.9) Eosinophils # (Auto) 0.0 TH/MM3 (0-0.4) Basophils # (Auto) 0.0 TH/MM3 (0-0.2) CBC Comment DIFF FINAL Differential Comment Blood Urea Nitrogen 8 MG/DL (7-18) Creatinine 0.82 MG/DL (0.60-1.30) Random Glucose 154 MG/DL (74-106) Calcium Level 9.0 MG/DL (8.5-10.1) Sodium Level 137 MEQ/L (136-145) Potassium Level 4.1 MEQ/L (3.5-5.1) Chloride Level 105 MEQ/L (98-107) Carbon Dioxide Level 25.9 MEQ/L (21.0-32.0) Anion Gap 6 MEQ/L (5-15) Estimat Glomerular Filtration Rate 105 ML/MIN (>89) Result Diagram: 11/12/17 0749 11/12/17 0749 Estefanía Alarcon MD Nov 12, 2017 15:38
== END 2017-11-12 17:07 | disposition home or self-care (01) | DRG 346 ==
LOC: NEPC 11:14 → NEDA 14:47 → OBSVTOIN 16:52 → NEPGCP 18:41 → N07B 11-11 17:38
PROVIDERS: ADMIT Family Medicine; ATTEND Family Medicine
PROC: 0D9P0ZZ Drainage of Rectum, Open Approach (ICD-10-PCS; principal; 2017-11-11 14:38)
DX: K61.1 Rectal abscess (principal); I10 Essential (primary) hypertension; Z88.6 Allergy status to analgesic agent
CPT/HCPCS: 74177; 80048; 80053; 81001; 82948; 83605; 85025; 85610; 85730; 93005; 96374; 96375; J0131; J1170; J1956; J2270; J2405; J7030; J7120; Q9967